=== PATIENT | male | born 1990 | race American Indian/Alaskan Native ===

== ENCOUNTER 2019-12-16 01:56 | Emergency (ER) | payer OTHER ==
[~2019-12-16] VITALS: Ht 170.2 cm; Wt 104.3 kg
[2019-12-16 02:03] VITALS: BP 130/85; TEMP 98.5
== END 2019-12-16 02:33 | disposition home or self-care (01) ==
LOC: ED 01:56
DX: H10.89 Other conjunctivitis (principal)
CPT/HCPCS: 99283